=== PATIENT | male | born 1975 | race Caucasian/White ===

== ENCOUNTER 2019-05-20 14:55 | Outpatient (CLI) | payer OTHER ==
--- NOTE | 2019-05-20 18:06 | SLEEP CARE CONSULTATION ---
Information from patient questionnaire entered by Betsy Mckoy. I have reviewed and concur with the information entered by Betsy Mckoy. This document represents the service I personally performed and the decisions made by me, Vivian Luciano MD, [facility]. History of Present Illness Reason for Visit: New patient Chief Complaint: reports: Snoring, Observed pauses in breathing Usual bedtime: [id number] Time it takes to fall asleep: within 30 minutes Snores at night: Yes Observed to quit breathing while asleep: Yes Sleeps alone due to snoring: No Number of times waking at night: 2-4 Reasons for waking at night: reports: Bathroom Toss, Turn, or Twitch while sleeping: No Recalls having dreams: Yes Usually gets out of bed at: 0500 Feels refreshed in the morning: Yes Morning headache: No Sleepy or fatigued during the day: Yes Ever fallen asleep while driving: No Takes day naps: Yes Dreams during day naps: Yes Prior sleep studies: No Additional HPI information: I had the pleasure of seeing Mr. Downey today regarding the possibility of him having a sleep disorder. As you know, he is a 43 year old gentleman who complains of loud snore and his has seen him quit breathing while asleep. The patient tells me that he normally goes to bed around 9 - 10 pm, and it takes him approximately < 30 minutes to fall asleep. His can still sleep in the same bed. He can recall waking up on the average of 2 - 4 times during the nig ht. Most of the time he wakes up because of having to use the bathroom. He has awakened occasionally because of his own snoring, choking, and having to gasp for air. There is not a lot of tossing and turning in his sleep. No somniloquy (sleep talking) or somnambulism (sleep walking). Generally he can recall having dreams. In the morning he usually gets up out of the bed around 5 a.m. feeling refreshed and rested. He usually does not have a morning headache. During the day he complains of feeling 9 sleepy and fatigued. His score on [place] Sleepiness Scale is 9 out of 24. He has never fallen asleep while driving nor has had any accident due to sleepiness. He usually takes naps during the day. Upon falling asleep during the day he reports having dreams. He has never had sleep paralysis, experienced cataplexy or symptoms of restless leg syndrome. He denies having impaired concentration during the day. Subjective Initial [place] Sleepiness Scale score: 9 Past Medical History Past Medical History: reports: Gout, Other (high blood pressure, high cholesterol, high uric acid, broken nose) Social History The patient's occupation is active . Patient is and lives in [place]. Have you smoked in the past 12 months: No Cigarettes per day (20/pack): 10 Years of smokin Quit date: 1999 Smoking Pack Years: 2.0 Alcohol use: Yes Caffeine use: Yes Caffeine amount and frequency: 1 can soda/day Family History Family history of sleep disordered breathing: Yes Family Hx Sleep Apnea: Father: Snoring, Sibling: Snoring Allergies and Home Medications Drug allergies reviewed: Yes (NKDA) Home medication list reviewed: Yes (lisinopril, allopurinol, and Lipitor) Review of Systems Cardiovascular: reports: high blood pressure Respiratory: denies: shortness of breath, wheeze, sputum production, chronic cough, other Gastrointestinal: denies: heartburn, difficulty swallowing, nausea, vomitting, diarrhea, abdominal pain, other Urinary: denies: incontinence, frequency, urgency, impotence, other Neurological: denies: headaches, seizure, head trauma, disorientation, speech dysfunction, gait or balance problems, fainting or unconsciousness, other Psychiatric: denies: Attention Deficit Hyperactivity, anxiety, depression, mood disorder, claustrophobia, other Ear/Nose/Throat: reports: sinus problems, injury to nose, wisdom teeth removed Musculoskeletal: reports: joint pain, back pain, joint swelling Immunologic: denies: sneezing, rash, itching, allergies to food or environment, other Physical Exam Vital signs obtained and entered by: Dr. Luciano Blood Pressure: 118/89 Cuff size: regular Heart Rate: 74 O2 Saturation: 97 Height: 5 ft 11 in Weight: 210 lb Body Mass Index: 29.2 BMI Classification: Overweight Neck circumference: 17 Mood/affect: normal HEENT: No craniofacial malformation Nostrils: patent to airflow Turbinates: normal Septum: deviated left Mouth and throat: narrow oropharynx Soft palate: long Hard palate: normal Uvula: normal Uvula visualization: 50% Mallampati Class II Tongue: normal in size Tonsils: small Chin and jaw: normal size and position Neck: normal w/o lymphadenopathy or thyromegaly Heart: regular rate and rhythm Lungs: clear bilaterally Abdomen: soft, non-tender Extremities: no edema or clubbing Neurologic: intact, no focal deficits Impression and Plan IMPRESSION: 1. Obstructive Sleep Apnea-Hypopnea Syndrome, as suggested by history of loud and irregular snoring, observed cessation of breath while asleep, frequent awakenings during the night, and daytime hypersomnolence. Narrow oropharynx and obesity are common predisposing factors for obstructive sleep apnea-hypopnea syndrome. Pathophysiology of sleep-disordered breathing was discussed. I recommend proceeding to polysomnography to confirm the diagnosis and to assess severity. If he has significant sleep disordered breathing, a manual CPAP titration study will also be performed to find the optimal treatment pressure. I informed the patient of what the sleep studies involve and after some discussion, he agreed to proceed. Plan: 1. Schedule an in-laboratory polysomnography + manual CPAP titration study 2. Avoid long distance driving or when feeling sleepy. 3. Avoid alcohol, sedative and muscle relaxant around bedtime. 4. Attempt to lose weight. 5. Return in 1 to 2 weeks after the study to discuss results and initiate therapy. I spent 100% of this visit face to face with the patient with greater than 50% of this was spent time counseling the patient and coordination of care.
[2019-05-20 18:07] VITALS: BP 118/89
== END 2019-05-20 14:56 | disposition home or self-care (01) ==
LOC: SC 14:55
PROVIDERS: ATTEND Internal Medicine Pulmonary Disease
DX: R06.83 Snoring (principal); R06.81 Apnea, not elsewhere classified; G47.8 Other sleep disorders; G47.10 Hypersomnia, unspecified; E66.3 Overweight; Z68.29 Body mass index [BMI] 29.0-29.9, adult
CPT/HCPCS: 99203; 99212

== ENCOUNTER 2019-05-30 19:25 | Outpatient (CLI) | payer OTHER | END 2019-05-30 19:26 | disposition home or self-care (01) | LOC: SC 19:25 | PROVIDERS: ATTEND Internal Medicine Pulmonary Disease | DX: G47.33 Obstructive sleep apnea (adult) (pediatric) (principal); E66.3 Overweight; Z68.29 Body mass index [BMI] 29.0-29.9, adult | CPT/HCPCS: 95810 ==

== ENCOUNTER 2019-06-03 12:51 | Outpatient (CLI) | payer OTHER ==
--- NOTE | 2019-06-03 13:25 | SLEEP CARE CONSULTATION ---
Information from patient questionnaire entered by Emy Fu. I have reviewed and concur with the information entered by Emy Fu. This document represents the service I personally performed and the decisions made by me, Vivian Luciano MD, [facility]. History of Present Illness Initial [place] Sleepiness Scale score: 9 Current [place] Sleepiness Scale score: 11 Additional HPI information: HPI: Mr. Downey returned for follow up of the sleep study he had three nights ago. The polysomnography showed that the patient had normal sleep efficiency. The sleep architecture was relatively normal considering the first- night effect. Respiratory monitoring showed mild obstructive sleep apnea- hypopnea (AHI = 8.5) associated with frequent oxyhemoglobin desaturation and moderate hypoxia ([place] oxygen saturation of 70%) but not sleep fragmentation. The respiratory events occurred almost exclusively during supine sleep (supine AHI = 19.2; non-supine = 0.44). Snore was loud in intensity. There was no si gnificant periodic leg movement of sleep. Cardiac rhythm was normal sinus rhythm without significant arrhythmia. No abnormal behavior (parasomnia) observed during the night. The patient was informed of these findings. I explained to him the pathophysiology behind obstructive sleep apnea. We then spent quite a bit of time discussing different treatment options. For mild obstructive sleep apnea, surgery and oral appliance are alternatives to nasal CPAP therapy but in moderate or severe cases, nasal CPAP is the most effective and reliable treatment. Weight loss in an obese individual is strongly recommended. After some discussion, he opted to go with the nasal CPAP therapy. Allergies and Home Medications Drug allergies reviewed: Yes Home medication list reviewed: Yes Review of Systems Review of systems same as previous: Yes Physical Exam Vital signs obtained and entered by: Physical exam deferred due to the COVID-19 pandemic. Height: 5 ft 11 in Impression and Plan IMPRESSION: 1. Obstructive Sleep Apnea-Hypopnea Syndrome, mild, occurring almost exclusively during supine REM sleep. Possibly, this is the cause of the patients symptoms of unrefreshed sleep, and excessive daytime sleepiness. As mentioned above, the patient will return for a manual CPAP/BiPAP titration study. PLAN: 1. Schedule a manual CPAP/BiPAP titration study. 2. Attempt to lose weight and avoid alcohol consumption near bedtime. 3. Avoid sleeping supine if possible (he has pain that prevents him from being in supine position for too long). 4. Return for follow up after the sleep study. I spent 100% of this visit face to face with the patient with greater than 50% of this was spent time counseling the patient and coordination of care.
== END 2019-06-03 12:52 | disposition home or self-care (01) ==
LOC: SC 12:51
PROVIDERS: ATTEND Internal Medicine Pulmonary Disease
DX: G47.33 Obstructive sleep apnea (adult) (pediatric) (principal)
CPT/HCPCS: 99212; 99213

== ENCOUNTER 2019-06-09 21:58 | Outpatient (CLI) | payer OTHER | END 2019-06-09 21:59 | disposition home or self-care (01) | LOC: SC 21:58 | PROVIDERS: ATTEND Internal Medicine Pulmonary Disease | DX: G47.33 Obstructive sleep apnea (adult) (pediatric) (principal); G47.61 Periodic limb movement disorder | CPT/HCPCS: 95811 ==

== ENCOUNTER 2019-06-24 16:42 | Outpatient (CLI) | payer OTHER ==
--- NOTE | 2019-06-24 15:04 | SLEEP CARE CONSULTATION ---
Information from patient questionnaire entered by Betsy Mckoy. I have reviewed and concur with the information entered by Betsy Mckoy. This document represents the service I personally performed and the decisions made by me, Vivian Luciano MD, [facility]. History of Present Illness Initial [place] Sleepiness Scale score: 9 Additional HPI information: To minimize the risk of COVID-19 exposure, the patient has requested and consented to this video telemedicine visit. The patient also agrees to having his insurance billed. HPI: Mr. Downey was called for a follow up of the sleep study he had on 06/09/2019. His also participated in the call. The polysomnography showed that CPAP was initiated at 5 cmH2O and titrated up to CPAP at 8 cmH2O. CPAP at 7 cmH2O appeared to be optimal (AHI of 0 per hour on the pressure). There was supine sleep on the pressure. Oxygen saturation was normal throughout the night. Lower CPAP settings appeared adequate as well. The patient tolerated positive airway pressure therapy very well using a [employer]ics DreamWear full face mask. The patients sleep efficiency was normal. The sleep architecture was also normal. There was mild periodic leg movement of sleep not associated with sleep fragmentation. Cardiac rhythm was normal sinus rhythm without significant arrhythmia. No abnormal behavior (parasomnia) observed during the night. The patient was informed of these findings. The patient has not been started on the positive airway pressure therapy yet but he said his primary care provider sent in a prescription already to [facility] [place]. Allergies and Home Medications Drug allergies reviewed: Yes Home medication list reviewed: Yes Review of Systems Review of systems same as previous: Yes Physical Exam Height: 5 ft 11 in Impression and Plan IMPRESSION: 1. Obstructive Sleep Apnea-Hypopnea Syndrome, mild, and positional. Most likely, this is the cause of the patients symptoms of unrefreshed sleep, and excessive daytime sleepiness. As mentioned above, the patient will be started on an autoCPAP set at 4 - 8 cmH2O. I anticipate good treatment compliance. PLAN: 1. Prescription made for an autoCPAP, heated humidifier, and related supplies. 2. Attempt to lose weight and avoid alcohol consumption near bedtime. 3. Avoid sleeping supine when not using the CPAP. 4. Return in six weeks for follow up. I will assess his response and compli ance at that time. Visit Type: Telehealth Video Video Type: [employer] Other Participants: Spouse/Significant Other Location of Provider: Home Patient agrees and consents to this telehealth visit type: Yes Time Spent with Patient (minutes): 12 Provider Statement: I spent 100% of the Telehealth Video Call with the patient with greater than 50% spent counseling the patient and coordination of care.
== END 2019-06-24 16:43 | disposition home or self-care (01) ==
LOC: SC 16:42
PROVIDERS: ATTEND Internal Medicine Pulmonary Disease
DX: G47.33 Obstructive sleep apnea (adult) (pediatric) (principal)
CPT/HCPCS: 99212; 99213

== ENCOUNTER 2020-02-23 08:59 | Emergency (ER) | payer OTHER ==
[2020-02-23 09:48] LABS: BASOPHILS % (AUTO) 0.4 %; EOSINOPHILS # (AUTO) 0.1 10^3/uL (0.0-0.7); EOSINOPHILS % (AUTO) 2.3 %; HGB - HEMOGLOBIN 14.2 g/dL (14.0-18.0); LYMPHOCYTES # (AUTO) 1.1 10^3/uL (1.5-3.5); LYMPHOCYTES % (AUTO) 20.6 %; MEAN CORPUSCULAR HEMOGLOBIN 31.6 pg (27.0-31.0); MEAN CORPUSCULAR HGB CONC 33.4 g/dL (32.0-36.0); MEAN CORPUSCULAR VOLUME 94.4 fL (80.0-94.0); MEAN PLATELET VOLUME 9.7 fL (7.4-11.4); MONOCYTES # (AUTO) 0.3 10^3/uL (0.0-1.0); MONOCYTES % (AUTO) 5.3 %; NEUTROPHILS # (AUTO) 3.8 10^3/uL (1.5-6.6); PLT - PLATELET COUNT 148 10^3/uL (130-450); RED CELL DISTRIBUTION WIDTH 13.2 % (12.0-15.0); WHITE BLOOD COUNT 5.3 x10^3/uL (4.8-10.8)
[2020-02-23 09:57] LABS: ALBUMIN 4.7 g/dL (3.2-5.5); ALBUMIN/GLOBULIN RATIO 1.6 (1.0-2.2); BILIRUBIN,TOTAL 0.8 mg/dL (0.2-1.0); CALCIUM 9.6 mg/dL (8.5-10.3); TOTAL PROTEIN 7.6 g/dL (6.7-8.2)
[2020-02-23 10:30] LABS: BILIRUBIN,URINE NEGATIVE (NEGATIVE); GLUCOSE, URINE (UA) NEGATIVE (NEGATIVE); KETONES,URINE (UA) NEGATIVE (NEGATIVE); LEUKOCYTE ESTERASE, URINE NEGATIVE (NEGATIVE); NITRITE,URINE NEGATIVE (NEGATIVE); OCCULT BLOOD,URINE NEGATIVE (NEGATIVE); PH,URINE 5.5 PH (5.0-7.5); PROTEIN,URINE NEGATIVE (NEGATIVE); UROBILINOGEN,URINE 0.2 (NORMAL) E.U./dL (NORMAL)
[2020-02-23 10:31] LABS: CLARITY,URINE CLEAR (CLEAR)
[2020-02-23] MEDS ORDERED: AMOX/CLAV 875 MG/125 MG TABLET PO STA (10:32)
--- NOTE | 2020-02-23 10:43 | ED Physician Documentation ---
PD HPI ABD PAIN - Stated complaint Stated Complaint: ABD PX - Chief complaint Chief Complaint: Abd Pain - History obtained from History obtained from: Patient - History of Present Illness Timing - onset: How many days ago (2) Timing - duration: Days (2) Timing - details: Gradual onset Pain level max: 7 Pain level now: 6 Quality: Aching, Pain Improved by: Other (nothing) Worsened by: Moving Associated symptoms: No: Fever, Nausea, Vomiting, Hematemesis, Diarrhea, Constipation Recently seen: Not recently seen - Additional information Additional information: Patient is a 44-year-old male who presents to the emergency department left lower quadrant abdominal pain, started yesterday. Nothing makes it better, worse with movement. States similar to prior episodes of diverticulitis. No fevers. No vomiting. No nausea. No diarrhea or constipation. Review of Systems Constitutional: denies: Fever, Chills Respiratory: denies: Cough GI: denies: Nausea, Vomiting, Diarrhea Skin: denies: Rash Musculoskeletal: denies: Neck pain, Back pain Neurologic: denies: Headache PD PAST MEDICAL HISTORY - Past Medical History Cardiovascular: Hypertension, High cholesterol Respiratory: None Endocrine/Autoimmune: None GI: None : None HEENT: None Psych: None Musculoskeletal: None Derm: None - Past Surgical History Past Surgical History: Yes HEENT: Rhinoplasty - Present Medications Home Medications: Ambulatory Orders Medication Instructions Recorded Confirmed Atorvastatin Calcium 40 mg PO DAILY 07/17/15 07/17/15 lisinopriL [Lisinopril] 40 mg PO DAILY 07/17/15 02/23/20 Amox/Clav 875/125 [Augmentin] 1 tab PO Q8H #30 tablet 02/23/20 allopurinoL [Zyloprim] 1 tab PO DAILY 02/23/20 02/23/20 - Allergies Allergies/Adverse Reactions: Allergies Allergy/AdvReac Type Severity Reaction Status Date / Time No Known Drug Allergies Allergy Verified 02/23/20 09:15 - Social History Does the pt smoke?: No Smoking Status: Never smoker Does the pt drink ETOH?: Yes Does the pt have substance abuse?: No - Immunizations Immunizations are current?: Yes - POLST Patient has POLST: No PD ED PE NORMAL - Vitals Vital signs reviewed: Yes - General General: Alert and oriented X 3, No acute distress - HEENT HEENT: Moist mucous membranes, Pharynx benign - Neck Neck: Supple, no meningeal sign - Cardiac Cardiac: RRR - Respiratory Respiratory: No respiratory distress, Clear bilaterally - Abdomen Abdomen: Soft, Non distended, Other (Tender to palpation left lower quadrant. No peritoneal signs. No rebound or guarding. Otherwise benign exam of the abdomen) - Derm Derm: Warm and dry - Neuro Neuro: Alert and oriented X 3 Results - Vitals Vitals: Vital Signs - 24 hr 02/23/20 02/23/20 09:12 11:07 Temperature 36.7 C 36.8 C Heart Rate 86 75 Respiratory 18 18 Rate Blood Pressure 145/79 H 122/80 O2 Saturation 96 100 Oxygen O2 Source Room air - Labs Labs: Laboratory Tests 02/23/20 02/23/20 02/23/20 09:42 09:42 10:16 WBC 5.3 RBC 4.50 L Hgb 14.2 Hct 42.5 MCV 94.4 H MCH 31.6 H MCHC 33.4 RDW 13.2 Plt Count 148 MPV 9.7 Neut # (Auto) 3.8 Lymph # (Auto) 1.1 L [place] # (Auto) 0.3 Eos # (Auto) 0.1 Baso # (Auto) 0.0 Absolute Nucleated RBC 0.00 Nucleated RBC % 0.0 Sodium 138 Potassium 4.5 Chloride 101 Carbon Dioxide 25 Anion Gap 12.0 BUN 19 Creatinine 1.0 Estimated GFR (MDRD) 82 L Glucose 116 H Calcium 9.6 Total Bilirubin 0.8 AST 24 ALT 36 Alkaline Phosphatase 60 Total Protein 7.6 Albumin 4.7 Globulin 2.9 Albumin/Globulin Ratio 1.6 Lipase 23 Urine Color YELLOW Urine Clarity CLEAR Urine pH 5.5 Ur Specific [place] 1.020 Urine Protein NEGATIVE Urine Glucose (UA) NEGATIVE Urine Ketones NEGATIVE Urine Occult Blood NEGATIVE Urine Nitrite NEGATIVE Urine Bilirubin NEGATIVE Urine Urobilinogen 0.2 (NORMAL) Ur Leukocyte Esterase NEGATIVE Ur Microscopic Review NOT INDICATED Urine Culture Comments NOT INDICATED PD MEDICAL DECISION MAKING - ED course Complexity details: considered differential, d/w patient ED course: Patient with what appears likely to be diverticulitis. Has had this in the past. We discussed a CT scan, he declines at this time. We discussed risks and benefits of antibiotics, he would like to pursue antibiotics at this time. Patient counseled regarding signs and symptoms for which I believe and urgent re-evaluation would be necessary. Patient with good understanding of and agreement to plan and is comfortable going home at this time This document was made in part using voice recognition software. While efforts are made to proofread this document, sound alike and grammatical errors may occur. Departure - Departure Disposition: 01 Home, Self Care Clinical Impression: Diverticulitis Condition: Good Instructions: ED Diverticulitis Follow-Up: RIDGE ZAMARRIPA MD [Primary Care Provider] - Prescriptions: Amox/Clav 875/125 [Augmentin] 1 tab PO Q8H #30 tablet Comments: Take all antibiotics until gone. Return if you worsen. We are treating you presumptively for diverticulitis, if you do not notice an improvement within the next 2 days, return for repeat evaluation Forms: Activity restrictions Discharge Date/Time: 02/23/20 11:07
[2020-02-23 11:08] VITALS: BP 122/80
== END 2020-02-23 11:07 | disposition home or self-care (01) ==
LOC: ED 08:59
DX: K57.92 Diverticulitis of intestine, part unspecified, without perforation or abscess without bleeding (principal); I10 Essential (primary) hypertension
CPT/HCPCS: 36415; 80053; 81003; 83690; 85025; 99283; 99284; A9270; 81001; 87086

== ENCOUNTER 2020-03-09 00:56 | Emergency (ER) | payer OTHER ==
[2020-03-09] MEDS ORDERED: BUFFERED LIDOCAINE 10 ML SYRINGE SUBQ STA (01:16)
--- NOTE | 2020-03-09 01:30 | ED Physician Documentation ---
History of Present Illness - Stated complaint Stated Complaint: LT ANKLE PX - Chief complaint Chief Complaint: Ext Problem - History obtained from History obtained from: Patient - Additonal information Additional information: 44-year-old man with past medical history of high blood pressure, hyperlipidemia, gout presents with left ankle swelling a/w pain, gradual onset, aching, constant, worse with weightbearing, nonradiating, moderate severity. He usually has flares in his knee and has never had an ankle before. Denies fever, trauma, sensory or motor deficits or other symptoms. Review of Systems Constitutional: denies: Fever, Chills Skin: denies: Rash, Abrasion (s), Laceration (s), Bite / sting Musculoskeletal: reports: Joint pain PD PAST MEDICAL HISTORY - Past Medical History Cardiovascular: Hypertension, High cholesterol Respiratory: None Endocrine/Autoimmune: None GI: None : None HEENT: None Psych: None Musculoskeletal: None, Gout Derm: None - Past Surgical History Past Surgical History: Yes HEENT: Rhinoplasty - Present Medications Home Medications: Ambulatory Orders Medication Instructions Recorded Confirmed Atorvastatin Calcium 40 mg PO DAILY 07/17/15 03/09/20 lisinopriL [Lisinopril] 40 mg PO DAILY 07/17/15 03/09/20 allopurinoL [Zyloprim] 1 tab PO DAILY 02/23/20 03/09/20 Colchicine 0.6 mg PO BID PRN 7 Days #14 tablet 03/09/20 - Allergies Allergies/Adverse Reactions: Allergies Allergy/AdvReac Type Severity Reaction Status Date / Time No Known Drug Allergies Allergy Verified 03/09/20 01:01 - Social History Does the pt smoke?: No Smoking Status: Never smoker Does the pt drink ETOH?: Yes Does the pt have substance abuse?: No - Immunizations Immunizations are current?: Yes - POLST Patient has POLST: No PD ED PE NORMAL - Vitals Vital signs reviewed: Yes - General General: Alert and oriented X 3 - HEENT HEENT: Atraumatic - Derm Derm: Normal color, Warm and dry - Extremities Extremities: Other (Left ankle with fluctuant swelling without overlying cellulitis, warm to the touch and tender with range of motion. DP and PT pulses intact. Normal sensation and motor distally) Results - Vitals Vitals: Vital Signs - 24 hr 03/09/20 01:01 Temperature 36.5 C Heart Rate 66 Respiratory 16 Rate Blood Pressure 136/100 H O2 Saturation 98 Oxygen O2 Source Room air - Labs Labs: Laboratory Tests 03/09/20 03/09/20 03/09/20 02:00 02:00 03:35 WBC 6.3 RBC 4.20 L Hgb 13.4 L Hct 39.5 L MCV 94.0 MCH 31.9 H MCHC 33.9 RDW 13.0 Plt Count 142 MPV 9.5 Neut # (Auto) 4.2 Lymph # (Auto) 1.6 [place] # (Auto) 0.4 Eos # (Auto) 0.1 Baso # (Auto) 0.0 Absolute Nucleated RBC 0.00 Nucleated RBC % 0.0 C-Reactive Protein Fluid Source SYNOVIAL Fluid Color BLOODY Fluid Clarity BLOODY Fluid WBC 67 Fluid RBC [id number] Fluid Crystals NONE SEEN 03/09/20 03:35 WBC RBC Hgb Hct MCV MCH MCHC RDW Plt Count MPV Neut # (Auto) Lymph # (Auto) [place] # (Auto) Eos # (Auto) Baso # (Auto) Absolute Nucleated RBC Nucleated RBC % C-Reactive Protein 1.3 H Fluid Source Fluid Color Fluid Clarity Fluid WBC Fluid RBC Fluid Crystals Procedures - Arthrocentesis Joint: Ankle, Left Preparation: Consent obtained, Sterile prep and drape Anesthesia: Lidocaine 1% Fluid: Bloody, Sent for cell count, Sent for crystals, Sent for gram stain Aftercare: No complications, Patient tolerated well PD MEDICAL DECISION MAKING - ED course Complexity details: d/w patient ED course: 44-year-old man with past medical history of gout comes in with possible gout flare versus infected joint. Will obtain arthrocentesis and send samples to the lab for evaluation. arthrocentesis sample was too small for culture and gram stain, however no crystals on analysis. labwork leaning away from septic etiology. xray without traumatic injury. d/w orthopedics Dr. Casper who recommends dc on colchicine and f/u in ortho clinic. will loan counselor patient on strict return precautions over next day or two. Departure - Departure Clinical Impression: Gout attack, Ankle pain, left Condition: Good Instructions: ED RICE Follow-Up: Javed Casper MD [Provider Admit Priv/Credential] - Prescriptions: Colchicine 0.6 mg PO BID PRN 7 Days #14 tablet PRN Reason: Pain Comments: You were seen in the emergency department for left ankle effusion. You should take colchicine for pain as needed and follow-up with Dr. Casper in his orthopedics clinic this week. If you do not have improvement in pain in the next day or 2 then you should come back to the emergency department for reevaluation. Your arthrocentesis did not show crystals, indicating that this is likely not gout. Your blood work is trending away from this being an infected joint however it is very important to follow-up if you are not having improvement.
[2020-03-09] MEDS ORDERED: KETOROLAC 30 MG/ML VIAL IM STA (01:54)
[2020-03-09 02:56] LABS: BF CLARITY BLOODY; BF COLOR BLOODY; BF SOURCE SYNOVIAL; CC,BF RBC 16840 /mm^3
[2020-03-09 03:38] LABS: BASOPHILS % (AUTO) 0.6 %; EOSINOPHILS # (AUTO) 0.1 10^3/uL (0.0-0.7); EOSINOPHILS % (AUTO) 1.9 %; HGB - HEMOGLOBIN 13.4 g/dL (14.0-18.0); LYMPHOCYTES # (AUTO) 1.6 10^3/uL (1.5-3.5); LYMPHOCYTES % (AUTO) 25.5 %; MEAN CORPUSCULAR HEMOGLOBIN 31.9 pg (27.0-31.0); MEAN CORPUSCULAR HGB CONC 33.9 g/dL (32.0-36.0); MEAN PLATELET VOLUME 9.5 fL (7.4-11.4); MONOCYTES # (AUTO) 0.4 10^3/uL (0.0-1.0); MONOCYTES % (AUTO) 5.9 %; NEUTROPHILS # (AUTO) 4.2 10^3/uL (1.5-6.6); NEUTROPHILS % (AUTO) 65.9 %; PLT - PLATELET COUNT 142 10^3/uL (130-450); WHITE BLOOD COUNT 6.3 x10^3/uL (4.8-10.8)
[2020-03-09 04:31] VITALS: BP 146/65
--- NOTE | 2020-03-09 08:23 | XRAY Report ---
PROCEDURE: Ankle 3 View LT INDICATIONS: ankle pain,swelling TECHNIQUE: 3 views of the ankle were acquired. COMPARISON: None FINDINGS: Bones: No fractures or dislocations. Ankle mortise is normally aligned. No suspicious bony lesions . Soft tissues: No tibiotalar joint effusion. Achilles tendon appears normal. IMPRESSION: No fracture. No osseous lesion. If there are persistent symptoms or continued clinical concern for pa thology, then repeat plain film radiographs (7-10 days) or advanced imaging (CT, MR, bone scan) shoul d be considered for further evaluation. Reviewed by: Joyce Rudd MD, PhD on 03/09/2020 8:21 AM PST Approved by: Joyce Rudd MD, PhD on 03/09/2020 8:21 AM PST Station ID: [id number]
== END 2020-03-09 04:31 | disposition home or self-care (01) ==
LOC: ED 00:56
DX: M10.9 Gout, unspecified (principal); M25.572 Pain in left ankle and joints of left foot; I10 Essential (primary) hypertension
CPT/HCPCS: 20605; 85025; 85651; 86140; 87070; 87205; 89051; 89060

== ENCOUNTER 2020-03-09 14:15 | Outpatient (CLI) | payer OTHER ==
--- NOTE | 2020-03-09 14:24 | SLEEP CARE CONSULTATION ---
Information from patient questionnaire entered by Shannan Thompson. I have reviewed and concur with the information entered by Shannan Thompson. This document represents the service I personally performed and the decisions made by me, Teresa Palmer ARNP. History of Present Illness Service Date and Time: 03/09/2020 1420 Previous diagnosis: Mild, Obstructive Sleep Apnea-Hypopnea Syndrome AHI: 8.5 (in 2019) Reason for follow up: six month Equipment type: CPAP Equipment obtained from: [employer] (getting supplies as needed) Mask style: Full face (F20) Backup mask available: Yes (old mask) Last cushion change: 1 week ago Prior sleep studies: Yes Year and Where: 2019 - [facility] Type of Sleep Study: Polysomnography HPI additional information: MARY GREGORY was diagnosed to have mild, AHI 8.5, obstructive sleep apnea- hypopnea syndrome and returns via Telehealth visit today for CPAP therapy six month follow-up. Sleep Study - Results Prior sleep studies: Yes Year and Where: 2019 - [facility] CPAP Compliance Data - Data Reviewed with Patient Average duration of nightly device use: 6 h 5 min Compliance rate %: 73 Current pressure setting (cmH2O): 4-8 Average residual AHI: 0.6 Subjective Missed days of use due to: reports: other (just didn't feel like wearing it) Patient concerns: denies: aerophagia, mask discomfort, air blowing in eyes, mask leak noise, condensation in mask/hose, nasal congestion, dry mouth, nose, throat, epistaxis, other Observed to snore while using device: No Current pressure setting perceived as: comfortable On therapy, patient: reports: sleeping better, awakening more refreshed, being more awake and alert during the day, more rested overall. denies: drowsiness while driving Initial [place] Sleepiness Scale score: 9 (in 2019) Current [place] Sleepiness Scale score: 7 Allergies and Home Medications Drug allergies reviewed: Yes (NKDA) Home medication list reviewed: Yes (no changes) Review of Systems Review of systems same as previous: No (gout attack Left ankle) Physical Exam Vital signs obtained and entered by: Telehealth visit to limit exposure during Covid pandemic Height: 5 ft 11 in Impression and Plan 1. Obstructive Sleep Apnea-Hypopnea Syndrome, mild, with fair treatment compliance and excellent apnea control. On CPAP therapy, the patient has better sleep quality and is more rested overall. He is doing well and comfortable with the CPAP therapy. I think we can follow up with him next year. He was encouraged to call with any pressure problems in the meantime as needed. Patient's apnea severity and rationale for treatment to reduce apnea, improve sleep quality and reduce cardiovascular and cerebrovascular events was reviewed. I also reviewed the benefit of consistent device use of CPAP for his hypertension. * Continue auto CPAP pressure at 4-8 cmH2O * Notify me if snoring with mask or feeling that the pressure is too much or too little * Attempt to lose weight * Call this office if any problems using CPAP * Return for follow up in 1-2 years , or sooner if concerns arise Counseling Topics: Spare mask, Weight loss health impact Visit Type: Telehealth Video Video Type: Doximity Location of Provider: Office Time Spent with Patient (minutes): 15 Provider Statement: I spent 100% of the Telehealth Video Call with the patient with greater than 50% spent counseling the patient and coordination of care.
== END 2020-03-09 14:16 | disposition home or self-care (01) ==
LOC: SC 14:15
PROVIDERS: ATTEND Nurse Practitioner Family
DX: G47.33 Obstructive sleep apnea (adult) (pediatric) (principal)

== ENCOUNTER 2022-04-15 10:51 | Emergency (ER) | payer BC, OTHER ==
[2022-04-15 11:07] VITALS: BP 129/75
--- NOTE | 2022-04-15 12:03 | ED Physician Documentation ---
PD HPI SKIN - Stated complaint Stated Complaint: RT HAND INJ - Chief complaint Chief Complaint: Laceration - History obtained from History obtained from: Patient - History of Present Illness Location: RUE - Additional information Additional information: Pt presents w/ right small Finger injury after cutting it on a can of beans. The patient states that it quickly "overwhelmed" a plain Band-Aid at home and he was concerned about the bleeding and that he may need some stitches. He just recently retired from the and states he believes he is up-to-date on his vaccinations. He has normal sensation and range of motion of the finger. PD PAST MEDICAL HISTORY - Past Medical History Past Medical History: Yes Cardiovascular: Hypertension, High cholesterol Respiratory: None Endocrine/Autoimmune: None GI: None : None HEENT: None Psych: None Musculoskeletal: None, Gout Derm: None - Past Surgical History Past Surgical History: Yes HEENT: Rhinoplasty - Present Medications Home Medications: Ambulatory Orders Medication Instructions Recorded Confirmed Atorvastatin Calcium 40 mg PO DAILY 07/17/15 03/09/20 lisinopriL [Lisinopril] 40 mg PO DAILY 07/17/15 03/09/20 allopurinoL [Zyloprim] 1 tab PO DAILY 02/23/20 03/09/20 Colchicine 0.6 mg PO BID PRN 7 Days #14 tablet 03/09/20 cephALEXin [Keflex] 500 mg PO QID 5 Days #20 capsule 03/09/20 - Allergies Allergies/Adverse Reactions: Allergies Allergy/AdvReac Type Severity Reaction Status Date / Time No Known Drug Allergies Allergy Verified 04/15/22 11:07 - Social History Does the pt smoke?: No Smoking Status: Never smoker Does the pt drink ETOH?: Yes Does the pt have substance abuse?: No - Immunizations Immunizations are current?: Yes - POLST Patient has POLST: No PD ED PE NORMAL - Vitals Vital signs reviewed: Yes - General General: Alert and oriented X 3, No acute distress, Well developed/nourished - HEENT HEENT: Atraumatic, Moist mucous membranes - Derm Derm: Normal color, Warm and dry, No rash, Other (1.5 cm laceration on the lateral aspect of the right small finger between the DIP and MIP. No tendon involvement.) - Neuro Neuro: Alert and oriented X 3 Eye Opening: Spontaneous Motor: Obeys Commands Verbal: Oriented GCS Score: 15 - Psych Psych: Normal mood, Normal affect Results - Vitals Vitals: Vital Signs - 24 hr 04/15/22 11:05 Temperature 36.7 C Heart Rate 77 Respiratory 16 Rate Blood Pressure 129/75 O2 Saturation 96 Oxygen O2 Source Room air PD Medical Decision Making - ED course Complexity details: d/w patient ED course: 46-year-old male presented with a small laceration to the Right small finger. Is normal range of motion sensation and no evidence of tendon involvement. We cleaned the wound and I did offer her Steri-Strips versus sutures Noted discussed with patient did this wound would be amenable to Steri-Strips and a good dressing. Patient did elect for skin glue and Steri-Strips which were applied and a small pressure dressing was applied the patient was advised to leave on for the next several hours and then he may cover with Band-Aid. Home wound care instructions and return precautions reviewed. Departure - Departure Disposition: 01 Home, Self Care Clinical Impression: Laceration Condition: Good Instructions: ED Laceration Small Superf No Sutr Comments: As we discussed, your finger laceration does not require sutures. We cleaned it and applied a small amount of skin glue and Steri-Strips as well as a pressure dressing. Please leave this pressure dressing in place for neck several hours and you can remove this but continue to utilize the Steri-Strips And leave these in place until they fall off on their own. You can wash your hands but try to avoid soaking this area or getting wet or scrubbing vigorously. Return if there are any signs of infection such as redness, swelling, purulent drainage or other new concerns.
== END 2022-04-15 12:09 | disposition home or self-care (01) ==
LOC: ED 10:51
DX: S61.216A Laceration without foreign body of right little finger without damage to nail, initial encounter (principal); W26.8XXA Contact with other sharp object(s), not elsewhere classified, initial encounter; I10 Essential (primary) hypertension
CPT/HCPCS: 12001; 99281

== ENCOUNTER 2022-04-20 15:01 | Outpatient (CLI) | payer BC, OTHER ==
--- NOTE | 2022-04-20 15:33 | SLEEP CARE CONSULTATION ---
Information from patient questionnaire entered by Jeanna Schultz. I have reviewed and concur with the information entered by Jeanna Schultz. This document represents the service I personally performed and the decisions made by me, Teresa Palmer ARNP. History of Present Illness Service Date and Time: 04/20/2022 1501 Previous diagnosis: Mild, Obstructive Sleep Apnea-Hypopnea Syndrome AHI: 8.5 (in 2019) Reason for follow up: annual (LAST SEEN 03/09/2020) Equipment type: CPAP ([employer] Airsense 10, s/u 06/2019) Equipment obtained from: [employer] (getting supplies as needed) Mask style: Full face (F20) Mask brand: Resmed Backup mask available: Yes (old mask) Last cushion change: 3 weeks Prior sleep studies: Yes Year and Where: 2019 - [facility] Type of Sleep Study: Polysomnography HPI additional information: MARY GREGORY was diagnosed to have mild, AHI 8.5, obstructive sleep apnea- hypopnea syndrome and returned today for CPAP therapy annual follow-up. Sleep Study - Results Type of Sleep Study: Polysomnography Prior sleep studies: Yes Year and Where: 2019 - [facility] CPAP Compliance Data - Data Reviewed with Patient Average duration of nightly device use: 7 HRS 4 MIN Compliance rate %: 89 (10/21/21-04/18/22; 165/180 days used) Current pressure setting (cmH2O): 4-8 Average residual AHI: 0.6 Central apnea: 0.0 Obstructive apnea: 0.1 Subjective Missed days of use due to: reports: travel (in [place]) Patient concerns: reports: condensation in mask/hose (in mask, causing it to slip on face). denies: aerophagia, mask discomfort, air blowing in eyes, mask leak noise, nasal congestion, dry mouth, nose, throat, epistaxis Observed to snore while using device: No Current pressure setting perceived as: comfortable On therapy, patient: reports: sleeping better, awakening more refreshed, being more awake and alert during the day, more rested overall. denies: drowsiness while driving Initial [place] Sleepiness Scale score: 9 (in 2019) Current [place] Sleepiness Scale score: 11 (04/20/22) Allergies and Home Medications Drug allergies reviewed: Yes (NKDA) Home medication list reviewed: Yes (no changes) Review of Systems Review of systems same as previous: Yes (no changes) Physical Exam Vital signs obtained and entered by: JEANNA Zeng MA Blood Pressure: 144/76 (LEFT ARM) Cuff size: regular Heart Rate: 86 O2 Saturation: 94 Height: 5 ft 11 in Weight: 223 lb Body Mass Index: 31.1 BMI Classification: Obese Impression and Plan 1. Obstructive Sleep Apnea-Hypopnea Syndrome, mild, with good treatment compliance and good apnea control. On CPAP therapy, the patient has better sleep quality and is more rested overall. Patient has significant improvement of their sleep apnea and are satisfied with current CPAP therapy. Patient has been getting a little condensation in his mask causing it to slip on his face. This has improved since he turned on his heater for winter. I adjusted his humidity down one increment to see if this will help resolve the issue. Patient states he knows how to adjust the humidity but has not for a long time. He will adjust it on his own if he develops oral dryness. Patient's apnea severity and rationale for treatment to reduce apnea, improve sleep quality and reduce cardiovascular and cerebrovascular events was reviewed. I also reviewed the benefit of consistent device use of CPAP for hypertension. 2. Obesity, unspecified. Currently patients BMI is 31.1. Obesity increases the risk of apnea, CPAP pressure requirements and overall health risks especially cardiovascular and diabetes. Thus patient is advised to lose weight. * Continue auto CPAP pressure at 4-8 cmH2O * Update supplies * Notify me if snoring with mask or feeling that the pressure is too much or too little * Attempt to lose weight * Call this office if any problems using CPAP * Return for follow up in 1 year, or sooner if concerns arise Counseling Topics: Spare mask, Weight loss health impact Visit Type: In Office Time Spent with Patient (minutes): 15 Provider Statement: I spent 100% of the Face to Face Visit with the patient with greater than 50% spent counseling the patient and coordination of care.
[2022-04-20 15:34] VITALS: BP 144/76
== END 2022-04-20 15:02 | disposition home or self-care (01) ==
LOC: SC 15:01
PROVIDERS: ATTEND Nurse Practitioner Family
DX: G47.33 Obstructive sleep apnea (adult) (pediatric) (principal); E66.9 Obesity, unspecified; Z68.31 Body mass index [BMI] 31.0-31.9, adult
CPT/HCPCS: 99212